=== PATIENT | male | born 1930 | race Caucasian/White ===

== ENCOUNTER 2017-03-26 15:13 | Emergency (ER) | payer MEDICARE ==
[2017-03-26 15:24] VITALS: BP 115/64
--- NOTE | 2017-03-26 15:31 | UC ---
Knee Pain HPI - HPI Summary HPI Summary: The patient comes in today for: 1. Left knee pain: Onset: One week ago. Palliative/provocative: Pressure makes it sore. Quality: Soreness. Region: Anterior left knee. Severity: 0/10 at rest, but with movement, it is 6/10 Time: Comes and goes depending on activity. Associated symptoms: Event: He states that he had his left anterior knee stuck by a twig. It bleed for about 1-2 minutes. There was no problem for about a week. He has not had any discharge Fevers: None. * - History of Current Complaint Chief Complaint: UCLowerExtremity Stated Complaint: LEFT KNEE PAIN Time Seen by Provider: 03/26/17 15:16 Hx Obtained From: Patient - Allergies/Home Medications Allergies/Adverse Reactions: Allergies Allergy/AdvReac Type Severity Reaction Status Date / Time No Known Allergies Allergy Verified 03/26/17 15:24 Home Medications: Home Medications Colchicine* [Colcrys*] 0.6 mg PO DAILY 03/26/17 [History Confirmed 03/26/17] Hydrochlorothiazide TAB* [Hydrodiuril TAB*] 25 mg PO DAILY 03/26/17 [History Confirmed 03/26/17] Indomethacin CAP* [Indocin CAP*] 50 mg PO TID PRN 03/26/17 [History Confirmed ] Levothyroxine TAB* [Synthroid 25 MCG TAB*] 150 mcg PO DAILY 03/26/17 [History Confirmed 03/26/17] Omeprazole CAP* [Prilosec CAP* 20 MG] 20 mg PO DAILY 03/26/17 [History Confirmed 03/26/17] Quinapril HCl 20 mg PO DAILY 03/26/17 [History Confirmed 03/26/17] PMH/Surg Hx/FS Hx/Imm Hx Previously Healthy: No - Gout Endocrine History: Thyroid Disease, Dyslipidemia Cardiovascular History: Hypertension - Surgical History Surgical History: Yes Surgery Procedure, Year, and Place: LSP SURGERY 08/07,LEFT HIP REPLACEMENT 10/08, [facility] SURGERY 12/06, TONSILS - Family History Known Family History: Negative: Hypertension, Diabetes - Social History Occupation: Retired Lives: With Family Alcohol Use: Rare Substance Use Type: None Smoking Status (MU): Never Smoked Tobacco Review of Systems Constitutional: Negative Skin: Negative Eyes: Negative ENT: Negative Respiratory: Negative Cardiovascular: Negative Gastrointestinal: Negative Genitourinary: Negative Musculoskeletal: Arthralgia All Other Systems Reviewed And Are Negative: Yes Physical Exam Triage Information Reviewed: Yes Appearance: Well-Appearing, No Pain Distress - while sitting., Well-Nourished, Other: - He has slowness with getting up and walking with a cane. Vital Signs: Initial Vital Signs Temp 98.4 F 03/26/17 15:18 Pulse 94 03/26/17 15:18 Resp 18 03/26/17 15:18 BP 115/64 03/26/17 15:18 Pulse Ox 99 03/26/17 15:18 Vital Signs Reviewed: Yes Eyes: Positive: Conjunctiva Clear. Negative: Discharge ENT: Positive: Hearing grossly normal, Other: - Ears: Cerumen buildup bilaterally.. Negative: Nasal congestion, Nasal drainage, Tonsillar swelling, Tonsillar exudate Dental: Negative: Gross Decay/Caries @, Dental Fracture @ Neck: Positive: Supple, Nontender, No Lymphadenopathy. Negative: Nuchal Rigidity Respiratory: Positive: Chest non-tender, Lungs clear, No respiratory distress, No accessory muscle use. Negative: Crackles, Wheezing Cardiovascular: Positive: RRR, No Murmur Abdomen Description: Positive: Nontender, No Organomegaly, Soft. Negative: Distended, Guarding Musculoskeletal: Positive: Strength Intact, ROM Intact, Other: - Left knee: There is no erythema. There is no effusion of the knee or prepatellar bursa. There is point tenderness to palpation of the prepatellar bursa. Neurological: Positive: Alert, Muscle Tone Normal Psychological: Positive: Age Appropriate Behavior, Consolable Skin: Negative: rashes, breakdown Knee Pain Course/Dx - Course Course Of Treatment: Patient told of his diagnosis and treatment options. Will treat with a short burse of streoids as I'm not familiar with his history/past medical history other than what he can tell me. - Differential Dx/Diagnosis Differential Diagnosis/HQI/PQRI: Sprain, Strain Provider Diagnoses: Left prepatellar bursitis Discharge - Discharge Plan Condition: Stable Disposition: HOME Patient Education Materials: Knee Bursitis (ED) Referrals: Charlie Herzog MD [Primary Care Provider] - 1 Week (Please see your primary care provider early next week to see how well you are doing. If you get worse, please be seen sooner.)
== END 2017-03-26 15:57 | disposition home or self-care (01) ==
LOC: UCCORT 15:13
DX: M70.42 Prepatellar bursitis, left knee (principal); I10 Essential (primary) hypertension; E78.5 Hyperlipidemia, unspecified; E07.9 Disorder of thyroid, unspecified
CPT/HCPCS: 99212; G0463

== ENCOUNTER 2017-04-10 11:01 | Emergency (ER) | payer MEDICARE ==
--- NOTE | 2017-04-10 11:12 | UC ---
Lower Extremity/Ankle HPI - HPI Summary HPI Summary: 87 YEAR OLD MALE WITH A HISTORY OF GOUT PRESENTS WITH COMPLAINS OF BILATERAL FOOT PAIN. - History of Current Complaint Stated Complaint: BILATERAL FOOT PAIN Time Seen by Provider: 04/10/17 11:09 - Allergies/Home Medications Allergies/Adverse Reactions: Allergies Allergy/AdvReac Type Severity Reaction Status Date / Time No Known Allergies Allergy Verified 04/10/17 11:13 Home Medications: Home Medications Amoxicillin/Clavulanate TAB* [Augmentin TAB 500 mg*] 500 mg PO BID 04/10/17 [ History Confirmed 04/10/17] PMH/Surg Hx/FS Hx/Imm Hx - Surgical History Surgical History: Yes Surgery Procedure, Year, and Place: LSP SURGERY 08/07,LEFT HIP REPLACEMENT 10/08, [facility] SURGERY 12/06, TONSILS - Family History Known Family History: Negative: Hypertension, Diabetes - Social History Alcohol Use: Rare Substance Use Type: None Smoking Status (MU): Never Smoked Tobacco Review of Systems Constitutional: Negative Skin: Negative Eyes: Negative ENT: Negative Respiratory: Negative Cardiovascular: Negative Gastrointestinal: Negative Genitourinary: Negative Motor: Negative Neurovascular: Negative Musculoskeletal: Edema, Other: - BILATERAL FOOT PAIN Neurological: Negative Psychological: Negative All Other Systems Reviewed And Are Negative: Yes Physical Exam Triage Information Reviewed: Yes Eye Exam: Normal ENT Exam: Normal Dental Exam: Normal Neck exam: Normal Neck: Positive: 1 Respiratory Exam: Normal Cardiovascular Exam: Normal Abdominal Exam: Normal Musculoskeletal: Positive: Edema @, Other: - BILATERAL FOOT PAIN Neurological Exam: Normal Psychological Exam: Normal Skin Exam: Normal Lower Extremity Course/Dx - Differential Dx/Diagnosis Provider Diagnoses: BILATERAL FOOT PAIN/SWELLING Discharge - Discharge Plan Condition: Stable Disposition: HOME Prescriptions: predniSONE TAB* [Deltasone TAB*] 40 mg PO DAILY #10 tab Patient Education Materials: Arthralgia (ED), Swollen Joint (ED) Referrals: Charlie Herzog MD [Primary Care Provider] - If Needed
[2017-04-10 11:14] VITALS: BP 105/55
== END 2017-04-10 11:32 | disposition home or self-care (01) ==
LOC: UCCORT 11:01
DX: M79.672 Pain in left foot (principal); M79.671 Pain in right foot; M79.89 Other specified soft tissue disorders
CPT/HCPCS: 99212; G0463

== ENCOUNTER 2017-06-12 15:39 | Emergency (ER) | payer MEDICARE ==
[2017-06-12 16:09] VITALS: BP 126/60
--- NOTE | 2017-06-12 16:38 | UC ---
Pediatric Resp HPI - HPI Summary HPI Summary: 87 year old with URI Sx. c/o productive cough, chest congestion, and low grade temp x 7 days. Sx worsening. no CP or SOB [ End ] - History Of Current Complaint Chief Complaint: UCRespiratory Stated Complaint: COLD/SORE THROAT Time Seen by Provider: 06/12/17 16:26 Hx Obtained From: Patient Onset/Duration: Gradual Onset Timing: Constant Severity Initially: Mild Severity Currently: Moderate - Allergies/Home Medications Allergies/Adverse Reactions: Allergies Allergy/AdvReac Type Severity Reaction Status Date / Time No Known Allergies Allergy Verified 06/12/17 16:09 Home Medications: Home Medications Allopurinol TAB* [Zyloprim 100 MG TAB*] 100 mg PO DAILY 06/12/17 [History Confirmed 06/12/17] Indomethacin CAP* [Indocin CAP*] 1 tab PO TID 06/12/17 [History Confirmed ] Past Medical History Previously Healthy: Yes - Social History Hx Smoking Exposure: No - Immunization History Immunizations Up to Date: Yes Review Of Systems ENT: Throat Pain Respiratory: Cough All Other Systems Reviewed And Are Negative: Yes Physical Exam Triage Information Reviewed: Yes Vital Signs: Initial Vital Signs Temp 97.8 F 06/12/17 16:04 Pulse 92 06/12/17 16:04 Resp 22 06/12/17 16:04 BP 126/60 06/12/17 16:04 Pulse Ox 99 06/12/17 16:04 Vital Signs Reviewed: Yes Appearance: Well-Appearing, No Pain Distress, Well-Nourished Eyes: Positive: Normal ENT: Positive: Normal ENT inspection, Hearing grossly normal, Pharynx normal Neck: Positive: Supple Respiratory: Positive: Chest non-tender, Lungs clear, Normal breath sounds, No respiratory distress Musculoskeletal: Positive: Normal Neurological: Positive: Normal Psychological: Positive: Normal Pediatric Resp Course/Dx - Course Course Of Treatment: Do not want this to become PNA -- treat at this time and f/ u with PCP in 3-4 days - Differential Dx/Diagnosis Differential Diagnosis/HQI/PQRI: Asthma, Bronchiolitis, Pneumonia, Sinusitis Provider Diagnoses: Bronchitis Discharge - Discharge Plan Condition: Good Disposition: HOME Prescriptions: Amoxicillin/Clavulanate TAB* [Augmentin TAB 875*] 875 mg PO BID #20 tab Benzonatate CAP* [Tessalon 100 MG CAP*] 100 mg PO TID PRN #20 cap PRN Reason: Cough Patient Education Materials: Acute Bronchitis (ED) Referrals: Charlie Herzog MD [Primary Care Provider] - 4 Days
== END 2017-06-12 16:47 | disposition home or self-care (01) ==
LOC: UCCORT 15:39
DX: J40 Bronchitis, not specified as acute or chronic (principal)
CPT/HCPCS: 99212; G0463